=== PATIENT | female | born 1945 | race Hispanic/Latino ===

== ENCOUNTER 2018-07-24 07:48 | Inpatient (IN) | payer OTHER ==
[~2018-07-24] VITALS: Ht 160 cm; Wt 118.8 kg
[2018-07-24] VITALS (22 sets, daily range): BP systolic 110–152; BP diastolic 56–96
[2018-07-24] MEDS ORDERED: IRBESARTAN150 MG PO (08:03)
[2018-07-24] MEDS ORDERED: METOPROLOL SUCC25 MG PO (08:03)
[2018-07-24] MEDS ORDERED: MONTELUKAST SOD10 MG PO (08:03)
[2018-07-24] MEDS ORDERED: METHOCARBAMOL500 MG PO (08:03)
[2018-07-24] MEDS ORDERED: DICYCLOMINE HCL20 MG PO (08:03)
[2018-07-24] MEDS ORDERED: potassium PO (08:03)
[2018-07-24] MEDS ORDERED: PANTOPRAZOLE SO40 MG PO (08:03)
[2018-07-24] MEDS ORDERED: ASPIR 8181 MG PO (08:03)
[2018-07-24] MEDS ORDERED: CRESTOR5 MG PO (08:03)
[2018-07-24] MEDS ORDERED: CYMBALTA30 MG PO (08:03)
[2018-07-24] MEDS ORDERED: HYDROCHLOROTHIA25 MG PO (08:03)
[2018-07-24] MEDS ORDERED: NITROGLYCERIN 0.4 MG SUBL ONE (08:07)
[2018-07-24] MEDS ORDERED: SODIUM CHLORIDE 0.9% 1000ML 1,000 ML ONE ×2 (08:07→11:23)
[2018-07-24] MEDS ORDERED: SODIUM CHLORIDE 0.9% 1000ML 1,000 ML IV STA (08:11)
[2018-07-24] MEDS ORDERED: MORPHINE SULFATE 2 MG/ML SYR 1ML IV STA (08:11)
[2018-07-24] MEDS ORDERED: ONDANSETRON HCL INJ 2MG/ML 2ML 2 MG/ML VIAL IV STA (08:11)
[2018-07-24] MEDS ORDERED: NITROGLYCERIN 0.4 MG SUBL SL PRN (08:15)
[2018-07-24] MEDS ORDERED: SODIUM CHLORIDE 0.9% 1000ML 1,000 ML IV ONE (08:15)
[2018-07-24] MEDS ORDERED: NITROGLYCERIN 0.4 MG SUBL SL ONE (08:15)
[2018-07-24 08:28] LABS: BASOPHILS % 0.2 % (0.0-1.0); EOSINOPHILS # (AUTO) 0.2 (0.0-0.4); EOSINOPHILS % 1.2 % (0.0-6.0); HEMATOCRIT 42.3 % (34.2-44.1); HEMOGLOBIN 14.2 g/dL (12.0-16.0); LYMPHOCYTES # (AUTO) 2.6 (1.0-3.2); MEAN CORPUSCULAR HEMOGLOBIN 29.7 pg (28-32); MEAN CORPUSCULAR HGB CONC 33.6 g/dL (31-35); MEAN CORPUSCULAR VOLUME 88.5 fL (81-99); MONOCYTES # (AUTO) 1.1 (0.2-0.8); MONOCYTES % 8.2 % (4.4-11.3); NEUTROPHILS # (AUTO) 9.8 (2.1-6.9); PLATELET COUNT 219 x10e3/uL (140-360); RED BLOOD COUNT 4.78 x10e6/uL (3.6-5.1); RED CELL DISTRIBUTION WIDTH 12.8 % (11.7-14.4)
[2018-07-24] MEDS ORDERED: MORPHINE SULFATE INJ 4 MG/ML INJ 1ML IV NR (08:30)
[2018-07-24] MEDS ORDERED: NITROGLYCERIN/D5W 200 MCG/ML 250 ML IV STA (08:31)
[2018-07-24] MEDS ORDERED: NITROGLYCERIN/D5W 200 MCG/ML 250 ML ONE (08:35)
[2018-07-24 08:37] LABS: INR 0.94; PROTHROMBIN TIME 13.1 seconds (11.9-14.5)
[2018-07-24 08:38] LABS: PARTIAL THROMBOPLASTIN TIME 28.5 seconds (23.8-35.5)
[2018-07-24] MEDS ORDERED: METHYLPREDNISOLONE SOD SUCC 125 MG/2ML VIAL IV ONE (08:45)
[2018-07-24] MEDS ORDERED: DIPHENHYDRAMINE HCL INJ 50 MG/ML VIAL IV ONE (08:45)
--- NOTE | 2018-07-24 08:51 | Diagnostic Imaging Report ---
EXAM: CHEST SINGLE (PORTABLE) DATE: 07/24/2018 8:11 AM INDICATION: Chest pain COMPARISON: Chest x-ray, 01/27/2006 FINDINGS: Lines and tubes: None Cardiac silhouette is slightly prominent, accentuated by low lung volumes. No focal pulmonary opacity, pleural effusion or pneumothorax. Upper abdomen unremarkable. No acute bony abnormality. There has been interval resection of the distal right clavicle with small anchors placed in the right humeral head. Surgical clips are seen in the cervical soft tissues. IMPRESSION: No evidence for acute disease. Signed by: Dr. Ronak Milian M.D. on 07/24/2018 8:48 AM
[2018-07-24 08:52] LABS: ALANINE AMINOTRANSFERASE 17 IU/L (0-55); ALBUMIN 3.5 g/dL (3.5-5.0); ALBUMIN/GLOBULIN RATIO 0.9 (0.8-2.0); ALKALINE PHOSPHATASE 106 IU/L (40-150); BLOOD UREA NITROGEN 14 mg/dL (7-26); BUN/CREATININE RATIO 18 (6-25); CALCIUM 9.3 mg/dL (8.4-10.2); CARBON DIOXIDE 24 mmol/L (22-29); CHLORIDE 103 mmol/L (98-107); CREATINE KINASE 64 IU/L (29-168); CREATININE, SERUM 0.78 mg/dL (0.57-1.11); EST GLOMERULAR FILTRATION RATE > 60 ML/MIN (60-); GLUCOSE 129 mg/dL (74-118); SODIUM 138 mmol/L (136-145)
[2018-07-24 09:08] LABS: CREATINE KINASE MB < 1.00 ng/mL (0-4.3)
--- NOTE | 2018-07-24 10:14 | Diagnostic Imaging Report ---
EXAMINATION: CT of the chest abdomen and pelvis with and without contrast, dissection protocol TECHNIQUE: Spiral CT images of the chest abdomen and pelvis were performed from the lung apices through the level of the lesser trochanters before and after the IV administration of 100 cc of Isovue-370. Coronal and sagittal reformatted images were available for review. For optimization of anatomic definition, volume rendered 3-D reconstructed images were generated on a stand-alone workstation under direct supervision of the interpreting physician. COMPARISON: Chest radiograph 07/24/2018 CLINICAL HISTORY:Chest pain, concern for aortic dissection DISCUSSION: Vasculature: The thoracic aorta is normal in course, caliber, and contour. No dissection, pseudoaneurysm, intramural hematoma, or mediastinal hematoma. Mild atherosclerotic calcification at the aortic isthmus and along the aortic valve annulus pelvis origins are of normal caliber and configuration. No central pulmonary emboli. The abdominal aorta is nonaneurysmal. There is atherosclerotic calcification at the celiac and SMA origins without significant stenosis. Single bilateral renal arteries are patent. MARIALUISA is patent. Common, external, and internal iliac arteries and visceral internal iliac arterial branches are patent. Lungs: Linear and reticular opacities in the dependent portions of the lower lobes compatible with subsegmental atelectasis. No airspace consolidation, mass lesion, or gross fibrotic change. Trachea, mainstem bronchi, and central lobar bronchi are patent. Airways: <The major airways are clear.> Pleura: <There is no evidence of pleural effusion or pneumothorax.> Heart and mediastinum: Postsurgical changes of probable left hemithyroidectomy. No axillary, hilar, or mediastinal lymphadenopathy. Small pericardial effusion of average attenuation 15 Hounsfield units. Normal heart size. Abdomen: Liver: Hepatic parenchyma is diffusely hypoattenuating compatible with steatosis. No focal hepatic lesion or intrahepatic biliary ductal dilatation. The gallbladder has been removed. Spleen: Heterogeneity of splenic attenuation reflects arterial phase of scan. Pancreas: No focal mass or ductal dilatation. Adrenals: 3.3 cm nodule in the medial limb of the left adrenal gland containing macroscopic fat compatible with myelolipoma. No right adrenal nodule. Kidneys: Subcentimeter hypoattenuating lesions bilaterally, too small to further characterize but likely to represent small cysts. No solid renal mass lesion. No hydronephrosis. No renal, ureteral, or bladder calculi. Pelvic organs: The urinary bladder is incompletely distended but otherwise unremarkable. The uterus is not identified and has presumably been removed. No adnexal mass. Peritoneum: No ascites or pneumoperitoneum. Lymph nodes: No pelvic sidewall, retroperitoneal, or mesenteric lymphadenopathy. GI tract: The large bowel is notable for a few diverticula scattered along the course of the sigmoid colon without wall thickening or inflammatory change. The appendix is not definitively identified. No right lower quadrant inflammatory change. The stomach is collapsed with prominent rugal folds. There is no small bowel dilatation to suggest obstruction. Soft tissues: Postsurgical changes of the anterior abdominal wall. Small fat-containing umbilical hernia Bones: Surgical anchors in the right humeral head. Multilevel degenerative disc changes of the cervical, thoracic, and lumbar spine. Degenerative changes of the hips and degenerative facet arthropathy of the lumbar spine intraosseous hemangiomas of the T11 and T12 vertebral bodies. IMPRESSION: No acute aortic pathology. Specifically, no aortic dissection. Atherosclerotic vascular disease as detailed above. No thoracoabdominal aortic aneurysm. Small pericardial effusion. Hepatic steatosis. Left adrenal myelolipoma. Sigmoid diverticulosis without evidence of diverticulitis. Signed by: Dr. Mariano Spann M.D. on 07/24/2018 10:10 AM
[2018-07-24] MEDS ORDERED: CLOPIDOGREL BISULFATE 75 MG TAB PO ONE (10:15)
--- NOTE | 2018-07-24 10:20 | NUR ---
Patient noted to be 92-93% on 4L nasal cannula. Non rebreather placed at this time at 15L.
[2018-07-24] MEDS ORDERED: ASPIRIN 325 MG TAB EC PO STA (10:43)
[2018-07-24] MEDS ORDERED: SODIUM CHLORIDE 0.9% 1000ML 1,000 ML IV SCH ×2 (10:45→12:32)
--- NOTE | 2018-07-24 11:15 | NUR ---
REC'D PT IN RM 8 IN WALKING ROUNDS WITH PATRICIA SIMMONS. DR. Mynor PEREZ/CASING SEWER TEAM AT BEDSIDE. [place]. DR. Mynor PEREZ ALSO SPEAKING WITH FAMILY
[2018-07-24] MEDS ORDERED: MIDAZOLAM HCL 2 MG/2 ML VIAL ONE (11:22)
[2018-07-24] MEDS ORDERED: HEPARIN SOD/SOD CHLORIDE 2,000 ML ONE (11:22)
[2018-07-24] MEDS ORDERED: FENTANYL CITRATE/PF 100MCG/2 ML INJ ONE (11:22)
[2018-07-24] MEDS ORDERED: LIDOCAINE HCL 2% LOCAL 20 ML VIAL ONE (11:22)
[2018-07-24] MEDS ORDERED: IOPAMIDOL 370 MG/ML 200 ML INFUS..BTL INJ ONE ×3 (11:23→12:07)
[2018-07-24] MEDS ORDERED: DIPHENHYDRAMINE HCL INJ 50 MG/ML VIAL ONE (11:42)
[2018-07-24] MEDS ORDERED: METHYLPREDNISOLONE SOD SUCC 125 MG/2ML VIAL ONE (11:42)
[2018-07-24 11:47] LABS: CHOL/HDL RATIO 2.2 (3.0-3.6)
[2018-07-24] MEDS ORDERED: VERAPAMIL HCL 2.5 MG/ML 2 ML VIAL ONE (11:48)
[2018-07-24] MEDS ORDERED: SODIUM CHLORIDE 0.9% 100 ML 100 ML ONE (12:07)
[2018-07-24 12:10] LABS: THYROID STIMULATING HORMONE 1.759 uIU/mL (0.350-4.940)
[2018-07-24] MEDS ORDERED: ONDANSETRON HCL INJ 2MG/ML 2ML 2 MG/ML VIAL IV PRN ×2 (12:45→15:00)
--- NOTE | 2018-07-24 12:55 | NUR ---
Notified quick technician of Echo order.
--- OUTSIDE RECORDS SUMMARY | 2018-07-24 13:07 | XMS REPORT ---
Author Author SANIYA PRUETT [facility] [employer] Address Unknown Phone Unavailable Care Team Providers Care Peer Specialist Name Role Phone SANIYA PRUETT CP Unavailable Allergies No Known Allergies Problems No Known Problems Medications No Known Medications Results No Known Results Summary Purpose [employer] Submission
--- OUTSIDE RECORDS SUMMARY | 2018-07-24 13:08 | XMS REPORT ---
Author Author [facility] Address Unknown Phone Unavailable Care Team Providers Care Jewelry Store Manager Name Role Phone Zackery ORTEGA Unavailable Unavailable Problems This patient has no known problems. Allergies, Adverse Reactions, Alerts This patient has no known allergies or adverse reactions. Medications This patient has no known medications. Results Test Description Test Time Test Comments Text Results Atomic Results Result Comments CTA ABD/PELVIS 2018-07-24 09:54:00 [place] [address] Patient Name: ACOSTA BROWN MR #: [id number] : 1945 Age/Sex: 73/F Req #: [id number] Adm Physician: Ordered by: YISEL ORTEGA MD Report #: [id number] Location: ER Room/Bed: Procedure: [id number] CT/CTA ABD/PELVIS Exam Date: 07/24/18 Exam Time: 929 REPORT STATUS: Signed EXAMINATION: CT of the chest abdomen and pelvis with and wit hout contrast, dissection protocol TECHNIQUE: Spiral CT images of the chest abdomen and pelvis were performed from the lung apices through the level of the lesser trochanters before and after the IV administration of 100 cc of Isovue-370. Coronal and sagittal reformatted images were available for review. For optimization of anatomic definition, volume rendered 3-D reconstructed images were generated on a stand-alone workstation under direct supervision of the interpreting physician. COMPARISON: Chest radiograph 07/24/2018 CLINICAL HISTORY:Chest pain, concern for aortic dissection DISCUSSION: Vasculature: The thoracic aorta is normal in course, caliber, and contour. No dissection, pseudoaneurysm, intramural hematoma, or mediastinal hematoma. Mild atherosclerotic calcification at the aortic isthmus and along the aortic valve annulus pelvis origins are of normal caliber and configuration. No central pulmonary emboli. The abdominal aorta is nonaneurysmal. There is atherosclerotic calcification at the celiac and SMA origins without significant stenosis. Single bilateral renal arteries are patent. MARIALUISA is patent. Common, external, and internal iliac arteries and visceral internal iliac arterial branches are patent. Lungs: Linear and reticular opacities in the dependent portions of the lower lobes compatible with subsegmental atelectasis. No airspace consolidation, mass lesion, or gross fibrotic change. Trachea, mainstem bronchi, and central lobar bronchi are patent. Airways: <The major airways are clear.> Pleura: <There is no evidence of pleural effusion or pneumothorax.> Heart and mediastinum: Postsurgical changes of probable left hemithyroidectomy. No axillary, hilar, or mediastinal l ymphadenopathy. Small pericardial effusion of average attenuation 15 Hounsfield units. Normal heart size. Abdomen: Liver: Hepatic parenchyma is diffusely hypoattenuating compatible with steatosis. No focal hepatic lesion or intrahepatic biliary ductal dilatation. The gallbladder has been removed. Spleen: Heterogeneity of splenic attenuation reflects arterial phase of scan. Pancreas: No focal mass or ductal dilatation. Adrenals: 3.3 cm nodule in the medial limb of the left adrenal gland containing macroscopic fat compatible with myelolipoma. No right adrenal nodule. Kidneys: Subcentimeter hypoattenuating lesions bilaterally, too small to further characterize but likely to represent small cysts. No solid renal mass lesion. No hydronephrosis. No renal, ureteral, or bladder calculi. Pelvic organs: The urinary bladder is incompletely distended but otherwise unremarkable. The uterus is not identified and has presumably been removed. No adnexal mass. Peritoneum: No ascites or pneumoperitoneum. Lymph nodes: No pelvic sidewall, retroperitoneal, or mesenteric lymphadenopathy. GI tract: The large bowel is notable for a few diverticula scattered along the course of the sigmoid colon without wall thickening or inflammatory change. The appendix is not definitively identified. No right lower quadrant inflammatory change. The stomach is collapsed with prominent rugal folds. There is no small bowel dilatation to suggest obstruction. Soft tissues: Postsurgical changes of the anterior abdominal wall. Small fat-containing umbilical hernia Bones: Surgical anchors in the right humeral head. Multilevel degenerative disc changes of the cervical, thoracic, and lumbar spine. Degenerative changes of the hips and degenerative facet arthropathy of the lumbar spine intraosseous hemangiomas of the T11 and T12 vertebral bodies. IMPRESSION: No acute aortic pathology. Specifically, no aortic dissection. Atherosclerotic vascular disease as detailed above. No thoracoabdominal aortic aneurysm. Small pericardial effusion. Hepatic steatosis. Left adrenal myelolipoma. Sigmoid diverticulosis without evidence of diverticulitis. Signed by: Dr. Stefania Menjivar M.D. on 07/24/2018 10:10 AM Dictated By: STEFANIA MENJIVAR MD 1010 Transcribed By: MEKHI on 07/24/18 1010 COPY TO: YISEL ORTEGA MD CTA CHEST 2018-07-24 09:54:00 [place] [address] Patient Name: ACOSTA BROWN MR #: [id number] : 1945 Age/Sex: 73/F Req #: [id number] Adm Physician: Ordered by: YISEL ORTEGA MD Report #: [id number] Location: ER Room/Bed: Procedure: [id number] CT/CTA CHEST Exam Date: 07/24/18 Exam Time: 929 REPORT STATUS: Signed EXAMINATION: CT of the chest abdomen and pelvis with and without contrast, dissection protocol TECHNIQUE: Spiral CT images of the chest abdomen and pelvis were performed from the lung apices through the level of the lesser trochanters before and after the IV administration of 100 cc of Isovue-370. Coronal and sagittal reformatted images were available for review. For optimization of anatomic definition, volume rendered 3-D reconstructed images were generated on a stand-alone workstation under direct supervision of the interpreting physician. COMPARISON: Chest radiograph 07/24/2018 CLINICAL HISTORY:Chest pain, concern for aortic dissection DISCUSSION: Vasculature: The thoracic aorta is normal in course, caliber, and contour. No dissection, pseudoaneurysm, intramural hematoma, or mediastinal hematoma. Mild atherosclerotic calcification at the aortic isthmus and along the aortic valve annulus pelvis origins are of normal caliber and configuration. No central pulmonary emboli. The abdominal aorta is nonaneurysmal. There is atherosclerotic calcification at the celiac and SMA origins without significant stenosis. Single bilateral renal arteries are patent. MARIALUISA is patent. Common, external, and internal iliac arteries and visceral internal iliac arterial branches are patent. Lungs: Linear and reticular opacities in the dependent portions of the lower lobes compatible with subsegmental ate lectasis. No airspace consolidation, mass lesion, or gross fibrotic change. Trachea, mainstem bronchi, and central lobar bronchi are patent. Airways: <The major airways are clear.> Pleura: <There is no evidence of pleural effusion or pneumothorax.> Heart and mediastinum: Postsurgical changes of probable left hemithyroidectomy. No axillary, hilar, or mediastinal lympha denopathy. Small pericardial effusion of average attenuation 15 Hounsfield units. Normal heart size. Abdomen: Liver: Hepatic parenchyma is diffusely hypoattenuating compatible with steatosis. No focal hepatic lesion or intrahepatic biliary ductal dilatation. The gallbladder has been removed. Spleen: Heterogeneity of splenic attenuation reflects arterial phase of scan. Pancreas: No focal mass or ductal dilatation. Adrenals: 3.3 cm nodule in the medial limb of the left adrenal gland containing macroscopic fat compatible with myelolipoma. No right adrenal nodule. Kidneys: Subcentimeter hypoattenuating lesions bilaterally, too small to further characterize but likely to represent small cysts. No solid renal mass lesion. No hydronephrosis. No renal, ureteral, or bladder calculi. Pelvic organs: The urinary bladder is incompletely distended but otherwise unremarkable. The uterus is not identified and has presumably been removed. No adnexal mass. Peritoneum: No ascites or pneumoperitoneum. Lymph nodes: No pelvic sidewall, retroperitoneal, or mesenteric lymphadenopathy. GI tract: The large bowel is notable for a few diverticula scattered along the course of the sigmoid colon without wall thickening or inflammatory change. The appendix is not definitively identified. No right lower quadrant inflammatory change. The stomach is collapsed with prominent rugal folds. There is no small bowel dilatation to suggest obstruction. Soft tissues: Postsurgical changes of the anterior abdominal wall. Small fat-containing umbilical hernia Bones: Surgical anchors in the right humeral head. Multilevel degenerative disc changes of the cervical, thoracic, and lumbar spine. Degenerative changes of the hips and degenerative facet arthropathy of the lumbar spine intraosseous hemangiomas of the T11 and T12 vertebral bodies. IMPRESSION: No acute aortic pathology. Specifically, no aortic dissection. Atherosclerotic vascular disease as detailed above. No thoracoabdominal aortic aneurysm. Small pericardial effusion. Hepatic steatosis. Left adrenal myelolipoma. Sigmoid diverticulosis without evidence of diverticulitis. Signed by: Dr. Stefania Menjivar M.D. on 07/24/2018 10:10 AM Dictated By: STEFNAIA MENJIVAR MD 1010 Transcribed By: MEKHI on 07/24/18 1010 COPY TO: YISEL ORTEGA MD CHEST SINGLE (PORTABLE) 2018-07-24 08:44:00 [place] [address] Patient Name: ACOSTA BROWN MR #: [id number] : 1945 Age/Sex: 73/F Req #: [id number] Adm Physician: Ordered by: YISEL ORTEGA MD Report #: [id number] Location: ER Room/Bed: Procedure: [id number] DX/CHEST SINGLE (PORTABLE) Exam Date: 07/24/18 Exam Time: 0830 REPORT STATUS: Signed EXAM: CHEST SINGLE (PORTABLE) DATE: 07/24/2018 8:11 AM INDICATION: Chest pain COMPARISON: Chest x-ray, 01/27/2006 FINDINGS: Lines and tubes: None Cardiac silhouette is slightly prominent, accentuated by low lung volumes. No focal pulmonary opacity, pleural effusion or pneumothorax. Upper abdomen unremarkable. No acute bony abnormality. There has been interval resection of the distal right clavicle with small anchors placed in the right humeral head. Surgical clips are seen in the cervical soft tissues. IMPRESSION: No evidence for acute disease. Signed by: Dr. Yisle Guerrero M.D. on 07/24/2018 8:48 AM Dictated By: YISEL GUERRERO MD 7 Transcribed By: MEKHI on 07/24/18847 COPY TO: YISEL ORTEGA MD
--- OUTSIDE RECORDS SUMMARY | 2018-07-24 13:08 | XMS REPORT | Summary of Care ---
Author Author Rick Kirk, Qing Organization Unknown Address [facility] Phone Unavailable Care Team Providers Care Cheese Wrapper Name Role Phone GIO Richardson, ALEXIS Unavailable Unavailable MINDA Wilson, BURTON Unavailable Unavailable BELIA Wilson, CHAN Unavailable Unavailable Rick Kirk, Qing Unavailable Unavailable BRENNEN Esqueda.PMikey, SOLEDAD Unavailable Unavailable TEN Wilson, MARTIN Unavailable Unavailable REINALDO Wilson, ALYCIA Unavailable Unavailable MADELINE BROOKS MO, ELLEN GUERRA Unavailable Unavailable MADELINE Wilson, ELLEN Unavailable Unavailable GIO MISHRA [place], ALEXIS Unavailable Unavailable REINALDO BROOKS, ALYCIA Unavailable Unavailable Ten BROOKS, Martin Unavailable Unavailable Unavailable Unavailable Functional Status Name Dates Details Functional status health issues are not documented Status: Name Dates Details Cognitive status health issues are not documented Status: Problems Name Dates Details Acute Tear Of Left Rotator Cuff Tendon (726.19) Status: Active Edema (782.3, R60.9) Status: Active Breast pain (611.71, N64.4) Status: Active Trigger finger, acquired (727.03, M65.30) Status: Active Anxiety (300.00, F41.9) Status: Active Allergic rhinitis (477.9, J30.9) Status: Active Brain tumor (239.6, D49.6) Status: Active Need for pneumococcal vaccine (V03.82, Z23) Status: Active Pain of left breast (611.71, N64.4) Status: Active Knee pain (719.46, M25.569) Status: Active Pain, hand joint, left (719.44, M79.642) Status: Active Pain, hand joint, right (719.44, M79.641) Status: Active Myalgia and myositis (729.1) Status: Active Need for vaccination with 13-polyvalent pneumococcal conjugate vaccine (V03.82, Z23) Status: Active Chronic midline thoracic back pain (724.1, M54.6) Status: Active Pleuritic pain (786.52, R07.81) Status: Active History of pulmonary embolus (PE) (V12.55, Z86.711) Status: Active Synovitis of left hand (727.05, M65.9) Status: Active Synovitis of right hand (727.05, M65.9) Status: Active Arthralgia of left foot (719.47, M25.572) Status: Active Arthralgia of right foot (719.47, M25.571) Status: Active 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, 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) Status: Active Floaters (379.24, H43.399) Status: Active Back pain (724.5, M54.9) Status: Active Back muscle spasm (724.8, M62.830) Status: Active On corticosteroid therapy (V58.65, Z79.52) Status: Active Postmenopausal estrogen deficiency (V49.81, Z78.0) Status: Active Dry eyes (375.15, H04.123) Status: Active Elevated serum creatinine (790.99, R79.89) Status: Active Chronic pain of both shoulders (719.41, M25.511) Status: Active Hearing loss, bilateral (389.9, H91.93) Status: Active Seasonal allergic rhinitis due to pollen (477.0, J30.1) Status: Active Sensorineural hearing loss (SNHL) of both ears (389.18, H90.3) Status: Active Hyperkalemia (276.7, E87.5) Status: Active Encounter for mini-mental status examination Status: Active Refused influenza vaccine (V64.06, Z28.21) Status: Active Benign essential HTN (401.1, I10) Status: Active Depression screening (V79.0, Z13.89) Status: Active At low risk for fall (V49.89, Z91.81) Status: Active Advance directive discussed with patient (V65.49, Z71.89) Status: Active Herpes simplex (054.9, B00.9) Status: Active Cataract (366.9, H26.9) Status: Active Dyspnea on exertion (786.09, R06.09) Status: Active Chest pain (786.50, R07.9) Status: Active Coronary artery calcification (414.00, I25.10) Status: Active On methotrexate therapy (V58.69, Z79.899) Status: Active Breast lump (611.72, N63.0) Status: Active Pain in joint (719.40, M25.50) Status: Active Encounter for screening for malignant neoplasm of colon (V76.51, Z12.11) Status: Active On statin therapy (V58.69, Z79.899) Status: Active Essential (primary) hypertension (401.9, I10) Status: Active Hyperlipidemia (272.4, E78.5) Status: Active Meningioma (225.2, D32.9) Status: Active Cerebrovascular disease (437.9, I67.9) Status: Active Gastroparesis (536.3, K31.84) Status: Active Arthralgia of both knees (719.46, M25.561) Status: Active Chronic right shoulder pain (719.41, M25.511) Status: Active Polyarthralgia (719.49, M25.50) Status: Active 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, E04.2) Status: Active Acid reflux (530.81, K21.9) Status: Active Irritable bowel syndrome (564.1, K58.9) Status: Active Rheumatoid arthritis with negative rheumatoid factor (714.0, M06.00) Status: Active On sulfasalazine therapy (V58.69, Z79.899) Status: Active Encounter for monitoring leflunomide therapy (V58.83, Z51.81) Status: Active Fibromyalgia (729.1, M79.7) Status: Active Pruritus of skin (698.9, L29.9) Status: Active Skin lesion of face (709.9, L98.9) Status: Active Need for Tdap vaccination (V06.1, Z23) Status: Active Medications Name Dates Details Probiotic Oral Capsule qd CHAN CELAYA M.D. * Start : 03-May-2013 Active Digestive Enzyme CAPS TAKE 1 CAPSULE DAILY * Refills: 0 Active Montelukast Sodium 10 MG Oral Tablet TAKE 1 TABLET IN THE EVENING. * Quantity: 90 Refills: 1 MINDA Wilson BURTON * Start : 08-Jun-2015 Active Pantoprazole Sodium 40 MG Oral Tablet Delayed Release TAKE 1 TABLET TWICE DAILY 30 MINUTES BEFORE BREAKFAST AND DINNER. * Quantity: 180 Refills: 3 MARTIN CAAL M.D. * Start : 10-Dec-2014 Active ValACYclovir HCl - 500 MG Oral Tablet 1 po bid x 5 days prn outbreak * Quantity: 30 Refills: 2 GIO P.AALEXIS Jensen * Start : 07-Aug-2015 Active Dicyclomine HCl - 20 MG Oral Tablet TAKE 1 TABLET TWICE DAILY. * Quantity: 60 Refills: 11 MARTIN CAAL M.D. * Start : 08-Feb-2016 Active Valsartan-Hydrochlorothiazide 320-25 MG Oral Tablet TAKE ONE TABLET BY MOUTH ONCE DAILY * Quantity: 90 Refills: 1 ALYCIA NAJERA M.D. * Start : 24-May-2016 Active Calcium-Magnesium TABS TAKE DIRECTED.(1000MG/500MG) * Refills: 0 Active Rosuvastatin Calcium 5 MG Oral Tablet TAKE 1 TABLET BEDTIME * Quantity: 90 Refills: 0 ALYCIA NAJERA M.D. * Start : 06-Sep-2016 Active Aspirin 81 MG Oral Tablet Delayed Release TAKE 1 TABLET DAILY * Refills: 0 ALYCIA NAJERA M.D. * Start : 06-Sep-2016 Active Albuterol Sulfate (2.5 MG/3ML) 0.083% Inhalation Nebulization Solution USE 1 UNIT DOSE EVERY 4-6 HOURS NEEDED FOR WHEEZING . * Quantity: 1 Refills: 1 SOLEDAD HUTTON N.P. * Start : 26-Sep-2016 Active 25 x 3 ML Plas Cont Fiber CAPS * Refills: 0 Active Collagen CAPS * Refills: 0 Active Cymbalta 30 MG Oral Capsule Delayed Release Particles TAKE 1 CAPSULE BEDTIME * Refills: 0 Active MethylPREDNISolone Acetate 80 MG/ML Injection Suspension USE DIRECTED. * Refills: 0 BRENNEN Esqueda.SOLEDAD Hodges * Start : 24-Apr-2017 Admin Requested Probiotic CAPS * Refills: 0 Active Metoprolol Succinate ER 25 MG Oral Tablet Extended Release 24 Hour TAKE 1 TABLET EVERY EVENING. * Quantity: 30 Refills: 3 ALYCIA NAJERA M.D. * Start : 27-Apr-2017 Active Breo Ellipta 200-25 MCG/INH Inhalation Aerosol Powder Breath Activated INHALE 1 PUFFS DAILY * Quantity: 1 Refills: 0 MINDA M.D., BURTON * Start : 03-May-2017 Active 28 Inhaler Pack Levocetirizine Dihydrochloride 5 MG Oral Tablet TAKE 1 TABLET DAILY. * Quantity: 30 Refills: 3 MINDA M.D., BURTON * Start : 30-Jun-2017 Active Allergies and Adverse Reactions Name Dates Details Coumadin TABS (Allergy) Status: Active Iodine SOLN (Allergy) Status: Active Past Medical History Name Dates Details History of arthritis (V13.4, Z87.39) Status: Resolved History of Benign Brain Tumor (V12.41) Status: Resolved History of deafness (V12.49, Z86.69) Status: Resolved History of Intussusception (560.0, K56.1) Status: Resolved History of Pulmonary Embolism (V12.55) Status: Resolved Procedures Procedure Dates Details History of Thyroid Surgery Thyroid Lobectomy Completed History of Cholecystectomy Completed History of Appendectomy Completed History of Tonsillectomy Completed History of Hysterectomy Completed History of Exploratory Laparotomy Completed History of Hemorrhoidectomy Completed History of Oophorectomy Completed History of Rotator Cuff Repair Completed History of Knee Surgery Completed Immunization Name Dates Details Pneumovax 23 25 MCG/0.5ML Injection Injectable Lot #: [id number] on: 11-Jun-2013 Zoster (Zostavax) Lot #: [id number] on: 11-Jun-2013 Prevnar 13 Intramuscular Suspension Lot #: [id number] on: 24-Dec-2015 PPD on: 06-Jan-2016 PPD, tuberculin skin test; purified protein derivative solution, intradermal on: 19-Apr-2017 Tdap Lot #: [id number] on: 30-Jun-2017 Family History Name Dates Details Family history of Hypertension (V17.49) Comments: Family History Status: Active Name Dates Details Family history of myocardial infarction (V17.3, Z82.49) Status: Active Social History Name Dates Details - Status: Name Dates Details Never smoker Vital Signs Date Test Result Details [id number] BP Systolic 133 mm[Hg] Status: Comments: Location: LUE; Position: Sitting BP Diastolic 76 mm[Hg] Status: Comments: Location: LUE; Position: Sitting Height 63 in Status: Weight 243.0625 lb Status: Body Mass Index Calculated 43.06 kg/m2 Status: Body Surface Area Calculated 2.1 m2 Status: Temperature 98.1 f Status: Comments: Method: Temporal Heart Rate 75 /min Status: Respiration Rate 16 /min Status: Physical Findings 0 Status: Comments: Pain Scale [id number] BP Systolic 141 mm[Hg] Status: Comments: Location: LUE; Position: Sitting BP Diastolic 77 mm[Hg] Status: Comments: Location: LUE; Position: Sitting Height 63 in Status: Weight 241.375 lb Status: Body Mass Index Calculated 42.76 kg/m2 Status: Body Surface Area Calculated 2.09 m2 Status: Heart Rate 77 /min Status: Respiration Rate 16 /min Status: Results Date Description Value Details Results not documented Plan of Care Name Dates Details Planned Observations Planned Goals not documented Planned Encounters Appointment; NATHANAEL DUFF M.D. On: 01-Sep-2017 9:45 Appointment; ALYCIA NAJERA M.D. On: 07-Sep-2017 9:40 Appointment; WATSON LR M.D. On: 29-Nov-2017 10:00 Appointment; CHAN CELAYA M.D. On: 08-Mar-2018 9:00 Instructions Name Dates Details Instructions not documented Encounters Appointment; BURTON PERLA M.D. Encounter Diagnosis: Problem not documented On: 07-Aug-2015 10:30 Appointment; MARTIN CAAL M.D. Encounter Diagnosis: Problem not documented On: 07-Aug-2015 13:30 Appointment; CHAN CELAYA M.D. Encounter Diagnosis: Problem not documented On: 10-Sep-2015 8:00 Appointment; MARTIN CAAL M.D. Encounter Diagnosis: Problem not documented On: 11-Sep-2015 13:45 Appointment; MARTIN CAAL M.D. Encounter Diagnosis: Problem not documented On: 14-Dec-2015 9:15 Appointment; ALEXIS POWERS P.A. Encounter Diagnosis: Problem not documented On: 24-Dec-2015 11:00 Appointment; WATSON LR M.D. Encounter Diagnosis: Problem not documented On: 05-Jan-2016 14:00 Appointment; MARTIN CAAL M.D. Encounter Diagnosis: Problem not documented On: 18-Jan-2016 9:15 Appointment; ALEXIS POWERS P.A. Encounter Diagnosis: Problem not documented On: 21-Jan-2016 10:00 Appointment; WATSON LR M.D. Encounter Diagnosis: Problem not documented On: 08-Feb-2016 9:30 Appointment; MARTIN CAAL M.D. Encounter Diagnosis: Problem not documented On: 08-Feb-2016 11:15 Appointment; WILLIAM MANTILLA Encounter Diagnosis: Problem not documented On: 02-Mar-2016 13:20 Appointment; CHAN CELAYA M.D. Encounter Diagnosis: Problem not documented On: 11-Mar-2016 9:00 Appointment; MARTIN CAAL M.D. Encounter Diagnosis: Problem not documented On: 14-Mar-2016 11:15 Appointment; WATSON LR M.D. Encounter Diagnosis: Problem not documented On: 11-Apr-2016 10:30 Appointment; WATSON LR M.D. Encounter Diagnosis: Problem not documented On: 12-May-2016 10:00 Appointment; JAYSHREE FLOREZ M.D. Encounter Diagnosis: Problem not documented On: 16-May-2016 10:00 Appointment; HOMER BARAJAS M.D. Encounter Diagnosis: Problem not documented On: 19-May-2016 18:00 Appointment; ALEXIS POWERS P.A. Encounter Diagnosis: Problem not documented On: 24-May-2016 9:45 Appointment; QING APARICIO Encounter Diagnosis: Problem not documented On: 07-Jun-2016 8:30 Appointment; JAYSHREE FLOREZ M.D. Encounter Diagnosis: Problem not documented On: 07-Jun-2016 9:15 Appointment; QING APARICIO Encounter Diagnosis: Problem not documented On: 10-Jun-2016 9:30 Appointment; WATSON LR M.D. Encounter Diagnosis: Problem not documented On: 23-Jun-2016 10:00 Appointment; ALEXIS POWERS P.A. Encounter Diagnosis: Problem not documented On: 25-Aug-2016 15:00 Appointment; ALYCIA NAJERA M.D. Encounter Diagnosis: Problem not documented On: 06-Sep-2016 14:00 Appointment; JOSE RAFAELNADIA OCONNELL Encounter Diagnosis: Problem not documented On: 09-Sep-2016 16:00 Appointment; WATSON LR M.D. Encounter Diagnosis: Problem not documented On: 20-Sep-2016 10:00 Appointment; ALEXIS POWERS P.A. Encounter Diagnosis: Problem not documented On: 26-Sep-2016 11:00 Appointment; [facility] Encounter Diagnosis: Problem not documented On: 20-Oct-2016 8:30 Appointment; ALYCIA NAJERA M.D. Encounter Diagnosis: Problem not documented On: 20-Oct-2016 14:15 Appointment; GHADA JOHNSON M.D. Encounter Diagnosis: Problem not documented On: 01-Dec-2016 9:30 Appointment; MARTIN CAAL M.D. Encounter Diagnosis: Problem not documented On: 14-Dec-2016 10:15 Appointment; WATSON LR M.D. Encounter Diagnosis: Problem not documented On: 25-Jan-2017 10:00 Appointment; MARTIN CAAL M.D. Encounter Diagnosis: Problem not documented On: 13-Feb-2017 10:15 Appointment; WATSON LR M.D. Encounter Diagnosis: Problem not documented On: 08-Mar-2017 9:30 Appointment; CHAN CELAYA M.D. Encounter Diagnosis: Problem not documented On: 10-Mar-2017 9:00 Appointment; MARTIN CAAL M.D. Encounter Diagnosis: Problem not documented On: 22-Mar-2017 11:00 Appointment; WATSON LR M.D. Encounter Diagnosis: Problem not documented On: 19-Apr-2017 9:30 Appointment; ALYCIA NAJERA M.D. Encounter Diagnosis: Problem not documented On: 20-Apr-2017 9:30 Appointment; ALYCIA NAJERA M.D. Encounter Diagnosis: Problem not documented On: 20-Apr-2017 9:40 Appointment; SOLEDAD HUTTON NP Encounter Diagnosis: Problem not documented On: 24-Apr-2017 15:00 Appointment; ALYCIA NAJERA M.D. Encounter Diagnosis: Problem not documented On: 27-Apr-2017 13:40 Appointment; SOLEDAD HUTTON NP Encounter Diagnosis: Problem not documented On: 27-Apr-2017 14:30 Appointment; BURTON PERLA M.D. Encounter Diagnosis: Problem not documented On: 03-May-2017 12:45 Appointment; WATSON LR M.D. Encounter Diagnosis: Problem not documented On: 31-May-2017 10:00 Appointment; ALYCIA NAJERA M.D. Encounter Diagnosis: Problem not documented On: 08-Jun-2017 11:00 Appointment; BURTON PERLA M.D. Encounter Diagnosis: Problem not documented On: 30-Jun-2017 14:00
--- NOTE | 2018-07-24 13:32 | NUR ---
Removed 2ml of air from right wrist TR band. Right wrist site appears to be without signs or symptoms of active bleeding at this time. Patient tolerated well.
--- NOTE | 2018-07-24 13:48 | NUR ---
Removed 2ml of air from right wrist TR band. Palpable right radial pulse. Right wrist site appears to be without signs or symptoms of active bleeding at this time. Patient tolerated well.
--- NOTE | 2018-07-24 14:22 | NUR ---
Removed 2ml of air from right wrist TR band. Right wrist site appears to be without signs or symptoms of active bleeding at this time. Palpable right radial pulse. Patient tolerated well.
--- NOTE | 2018-07-24 14:29 | NUR ---
Removed 15 L nonrebreather and placed patient on 4 liters nasal cannula. will monitor. Patient oxygen saturation 97%
--- NOTE | 2018-07-24 14:40 | NUR ---
Removed 2ml of air from right wrist TR band. RIght wrist site appears to be without signs or symptoms of active bleeding at this time. Patient tolerated well.
--- NOTE | 2018-07-24 14:50 | NUR ---
Called Dr. Mynor Cardenas and notified patient reports chest pain with movement and with inspiration. Dr. Mynor Cardenas ordered 1mg Dilaudid IV [id number] prn pain and Consult Dr. Diggs for hypoxia.
[2018-07-24] MEDS ORDERED: HYDROMORPHONE 2MG/ML 2 MG/ML ML IV PRN (15:00)
--- NOTE | 2018-07-24 15:05 | NUR ---
1505PM DILAUDID 1MG IVP OVER 2MINUTES FOR PAIN 12/15 RELIEVED TO 10 W/O INTENSE CHEST AT THIS TIME BP 140 SYSTOLIC 13 RESP ON N/C 98%SAT STABLE DS/RN.
[2018-07-24] MEDS: HYDROMORPHONE 2MG/ML 2 MG/ML ML IV PRN (15:47)
--- NOTE | 2018-07-24 15:47 | NUR ---
Received pt. from Miracle Clarke RN. Pt. c/o pain in chest status post LHC. Physician ordered Dilaudid per Miracle Clarke RN. 1 mg of Dilaudid IV given per Melisa Ching RN. Pt. tolerated well and noted diminished pain to 4/10. Removed 2 ml of air from TR Band; patient status unchanged.
--- NOTE | 2018-07-24 15:50 | NUR ---
Echo done at bedside.
--- NOTE | 2018-07-24 16:25 | NUR ---
Removed 2ml of air from right wrist TR band. RIght wrist site appears to be without signs or symptoms of active bleeding at this time. Palpabe right radial pulse. Patient tolerated well.
--- NOTE | 2018-07-24 16:31 | NUR ---
Spoke with Alejandra to harman for Consult for Dr. Diggs.
--- NOTE | 2018-07-24 16:40 | NUR ---
Removed last 2ml of air from right wrist TR band. Dressing applied per unit protocol. Dressing to right wrist is clean,dry, and intact. Palpable right radial pulse. Pulse ox to second digit of right hand.
--- NOTE | 2018-07-24 17:00 | NUR ---
Called Dr. Noe Chaparro to request diet order. Dr. Noe Chaparro ordered regular diet.
--- NOTE | 2018-07-24 17:05 | NUR ---
Patient tolerated PO food and fluid. Patient denies nausea/vomiting at this time.
--- NOTE | 2018-07-24 19:00 | NUR ---
report provided to ortega GOMEZ. Alert oriented and appropriate, PERRLA, respirations even and unlabored to 2L/nc. Pulses x4 equal and strong. Pedal pulses PT/DP palpable . Cap fill brisk < 3 sec. Right radial with dressing and +neurovascular funntion. + affect , family at bedside Skin warm and dry integrity appears intact. IV 20g to left and right AC area presents healthy w/o s/s of infiltration or complaint. Abdomen soft and supple. pt offered toileting, denies need to urinate or defecate. Personal affects with patient. Family at bedside. Pt and family verbalizes understanding of POC. [facility] transferred [facility] to [address] [place] [address] on monitor and oxygen by laborer powerhouse escort. Currently w/o complaint of pain or need. No obvious gross issues or deficits -cgf
--- NOTE | 2018-07-24 19:08 | Consultation ---
DATE OF CONSULTATION: 07/24/2018 REASON FOR CONSULTATION: Chest pain. 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 The patient presents to [facility] ER with complaints of chest pain that started initially yesterday afternoon; however, had episode again this morning and therefore came to the ER for further evaluation. Initial EKG noted with inverted T-waves and the patient with continuous chest pain. Cardiology was consulted to evaluate the patient. The patient was seen in ER room 8 with family at bedside. The patient reports initial chest pain episode yesterday evening about 5 p.m., describes it as a tightness, cramping, retrosternal, radiating to the left jaw. Apparently, the patient took some vinegar and water, believed it was her reflux; however, symptoms progressed for about an hour and ceased. Apparently the patient reports went to bed and this morning around 5 a.m., had repeated episode of chest tightness, cramping, retrosternal, radiating to left jaw with some shortness of breath and nausea that was continuous. Therefore, the patient came to the ER for further evaluation. The patient was loaded with Plavix. The patient also reports for the past several weeks has reported more shortness of breath, feeling tired with minimal activities. Currently, the patient is reporting chest pain, she is on nonrebreather. PATIENT SAID SHE HAD ABNORMAL STRESS TEST BY DR. GODFREY AT [place] AND SHE IS UNDER OBSERVATION WITH MEDICAL [facility] PAST MEDICAL HISTORY: Hypertension, hyperlipidemia, PE in 2009 post right knee surgery, gastroparesis, asthma, left parietal lobe tumour being followed by [place] [facility], reflux, depression, and asthma. PAST SURGICAL HISTORY: Right knee surgery in 2009, thyroidectomy, cholecystectomy, hysterectomy, tonsillectomy, bowel surgery secondary to obstruction, appendectomy, hemorrhoidectomy, and right shoulder surgery. FAMILY HISTORY: Mother at the age 83 from apparently [place]. Father at the [place] 52 [place]. SOCIAL HISTORY: She is . 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 Denies any tobacco use. Occasional alcohol use. ALLERGIES: TO IODINE. HOME MEDICATIONS: Include aspirin 81 mg once a day, metoprolol 25 mg once daily, hydrochlorothiazide 25 mg once daily, irbesartan 300 mg once daily, dicyclomine 20 mg twice a day, Protonix 40 mg once a day, rosuvastatin 5 mg once a day, Cymbalta 30 mg once a day, Singulair 10 mg once a day, and methocarbamol 500 mg once daily. REVIEW OF SYSTEMS: GENERAL: Denies any fevers, chills, night sweats, any weight changes. Positive for fatigue and weakness for several weeks or so. SKIN: No rashes or sores reported. HEENT: Positive for headaches. Denies any vision changes, any blurred vision, double vision, any earaches, any epistaxis, any sore throat, or swollen neck. CARDIAC: Positive for chest pain. Positive for hypertension. Denies any palpitations. Positive for dyspnea on exertion. Denies any orthopnea or PND. RESPIRATORY: Positive for shortness of breath. Intermittent wheezing. Denies coughing or hemoptysis. GI: Reports good appetite. Positive for nausea and vomiting. Denies any melena, hematochezia, or abdominal pain. URINARY: Denies any frequency, urgency, any dysuria, or hematuria. VASCULAR: Positive for intermittent lower extremity edema, reports left worse than right. MUSCULOSKELETAL: Positive for generalized joint pains. NEUROLOGIC: Denies any tingling, tremors, weakness, paralysis, fainting, blackout, or seizures. HEMATOLOGIC: Denies any bruising, bleeding, or any anemia. ENDOCRINE: Denies any heat or cold intolerance, any polyuria, polydipsia, or polyphagia. PHYSICAL EXAMINATION: VITAL SIGNS: Height 63 inches, weight 250 pounds, and BMI 44. Temperature 98.4, pulse 74, blood pressure 142/65, and pulse ox 98% on nonrebreather. GENERAL: Appears reliable informant. Appears stated age and some mild shortness of breath. SKIN: No rashes or bruises noted. HEENT: Normocephalic. Pupils are equal and reactive. Extraocular movements are intact. Trachea midline. NECK: No JVD noted. No carotid bruit noted; however, the patient is obese. HEART: Regular rate and rhythm. No murmurs or clicks noted. PMI about fourth and fifth intercostal space. LUNGS: Bilateral breath sounds with some crackles noted at the bases. No wheezing noted. ABDOMEN: Soft, nontender, and nondistended. No organomegaly noted. MUSCULOSKELETAL: Good muscle strength throughout. There is some slight swelling in the left lower extremity more than right. VASCULAR: +2 bilateral radial pulses, +2 DP/PT pulses bilaterally. NEUROLOGIC: Cranial nerves II through XII seem intact. LABORATORY DATA: White count 13, hemoglobin 14, hematocrit 42, and platelets 219. Sodium 138, potassium 4.9, bicarb 24, BUN 14, creatinine 0.7. Troponins less than 0.05. BNP 31. PTT 28, D-dimer 380. IMAGING: Chest x-ray no acute abnormalities. CT of the chest, abdomen, and pelvis; no thoracoabdominal aneurysm. Left adrenal myelolipoma, sigmoid diverticulosis, and small pericardial effusion reported. Initial EKG showing inverted T-waves in the inferior leads, following EKG showing inverted T-waves in the lateral leads. ASSESSMENT: 1. Chest pain, unstable. 2. Hypertension. 3. Hyperlipidemia. 4. Gastroesophageal reflux disease. 5. Obesity. PLAN: 1. The patient presents with chest pain. Now reports chest pain continuous at rest, unstable in nature. The patient loaded with Plavix. Left heart catheterization discussed with the patient's daughter and at beside. Risks and benefits included, questions answered. The patient wishes to proceed with left heart catheterization. Will give steroids for Iodine allergy 2. As mentioned, the patient was already loaded with Plavix. 3. We will go ahead and get a consent, which has been discussed with nursing staff. 4. We will continue aspirin, statin, and beta-coleman therapy. 5. We will get an echo to evaluate heart function and structure. 6. Further recommendations as clinical course dictates. Thank you very much for this consult. Dictated by Mariano Woodruff NP Patient seen, examined and evaluated Foster Cardenas MD DC/LEIGH ANN /[id number] TATIANA
--- NOTE | 2018-07-24 19:45 | NUR ---
patient brought into the unit, reporting rn, states all meds ordered until 1930 has being administered, patient welcomed and made comfortable in bed, patient had 400mls of urine on arrival.
--- NOTE | 2018-07-24 19:53 | Operative Report ---
DATE OF PROCEDURE: 07/24/2018 SURGEON: Daniel Cardenas MD PROCEDURES PERFORMED: 1. Left heart cardiac catheterization with coronary angiography. 2. Left ventriculography. GANG KNIFE FISH CHOPPER: Daniel Cardenas MD. 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 Andrews about one year ago, who has been medically managed. The patient also has remote history of pulmonary embolism 6 to 7 years ago. She presents to the ER with hypoxic respiratory failure, O2 sat 90% and was placed on a nonrebreather. She came in with initial T-wave inversions in the inferior leads and in the ER she clinically deteriorated with pseudonormalization of the inferior leads and was placed on a nitroglycerin drip. Despite this the patient was having relentless substernal chest pressure radiating to the neck highly concerning for high-risk ACS situation. The patient was taken emergently to the cardiac catheterization on the urge of the ER physician, who noted such a rapid decline. DESCRIPTION OF PROCEDURE: The patient was brought to the cardiac catheterization laboratory in emergent fashion where the right wrist was prepped and draped in usual sterile fashion. 1% lidocaine solution was used to numb the right wrist region and access to the right radial artery was obtained and a long 5-American Terumo Glidesheath was placed. Intra-arterial verapamil 2.5 mg was given and IV heparin 5000 units was given for systemic anticoagulation. Initially, we went up with a 5-American Joey 4.0 diagnostic catheter and selected the right coronary artery. This revealed a large right dominant system, however, no significant disease. We switched that for a JL 3.5 5-American diagnostic catheter and performed left coronary angiography. Afterwards, we took an angled pigtail catheter, placed in the ventricle and utilizing power injection, ventriculography was performed. Ventricular filling pressures were measured as well as the pressure gradient across the aortic valve. At the conclusion of the case, the catheter was removed with a JR and a Terumo TR band was successfully deployed utilizing patent hemostasis technique and a total of 16 cc of air was placed. COMPLICATIONS: None. ESTIMATED BLOOD LOSS: Minimal. FINDINGS: 1. Left main is angiographically normal. It gives rise to an LAD and circumflex branch. 2. LAD gives rise to a large first diagonal branch, which is angiographically normal. The remainder of the LAD is angiographically normal. 3. Left circumflex artery terminates into a mid marginal branch and is angiographically normal. 4. RCA is dominant and gives rise to right PDA and to right PLV branches. This vessel and its branches are angiographically normal. 5. Left ventricular ejection fraction is 65% with end-diastolic pressure of 20 mmHg. There is no significant LV to aortic pullback gradient. PLAN/RECOMMENDATIONS: 1. The patient essentially has patent coronary arteries. 2. There are no segmental wall motion abnormalities and end-diastolic pressure is 20 mmHg. These findings are out of proportion to her level of hypoxia and clinical presentation. 3. The patient was premedicated with Benadryl and IV steroids with protection against any contrast reaction. 4. We will defer to primary care for further care and management and evaluation. MD MARISSA Hargrove/LEIGH ANN /[id number]
--- NOTE | 2018-07-24 20:39 | NUR ---
Consult to PULMONARY called and spoke to Dr. Moreno, will see patient in the morning.
[2018-07-24] MEDS: CRESTOR 10MG PO SCH (21:00)
[2018-07-25] VITALS (8 sets, daily range): BP systolic 112–143; BP diastolic 56–80
[2018-07-25 05:43] LABS: BASOPHILS % 0.1 % (0.0-1.0); HEMATOCRIT 42.3 % (34.2-44.1); HEMOGLOBIN 13.9 g/dL (12.0-16.0); LYMPHOCYTES # (AUTO) 1.6 (1.0-3.2); MEAN CORPUSCULAR HEMOGLOBIN 29.8 pg (28-32); MEAN CORPUSCULAR HGB CONC 32.9 g/dL (31-35); MEAN CORPUSCULAR VOLUME 90.8 fL (81-99); MONOCYTES # (AUTO) 1.7 (0.2-0.8); MONOCYTES % 7.4 % (4.4-11.3); NEUTROPHILS # (AUTO) 19.2 (2.1-6.9); NEUTROPHILS % 84.7 % (38.7-80.0); PLATELET COUNT 193 x10e3/uL (140-360); RED BLOOD COUNT 4.66 x10e6/uL (3.6-5.1); RED CELL DISTRIBUTION WIDTH 13.1 % (11.7-14.4)
[2018-07-25 06:05] LABS: ALBUMIN 3.1 g/dL (3.5-5.0); ALBUMIN/GLOBULIN RATIO 0.7 (0.8-2.0); ANION GAP 12.8 mmol/L (8-16); CALCIUM 9.2 mg/dL (8.4-10.2); CREATININE, SERUM 1.09 mg/dL (0.57-1.11); POTASSIUM 4.8 mmol/L (3.5-5.1)
--- NOTE | 2018-07-25 07:25 | NUR ---
Patient endorsed to next shift for continuity of care.
[2018-07-25] MEDS ORDERED: NAPROXEN 250 MG TAB PO PRN (09:00)
[2018-07-25] MEDS ORDERED: ASPIRIN 81 MG ENTERIC COATED PO SCH (09:00)
[2018-07-25] MEDS ORDERED: ALPRAZOLAM 0.25 MG TAB PO PRN (09:00)
[2018-07-25] MEDS: METOPROLOL TARTRATE 25 MG TAB PO SCH ×2 (09:00→16:49)
[2018-07-25] MEDS: IRBESARTAN 150 MG TAB PO SCH (09:00)
[2018-07-25] MEDS: PANTOPRAZOLE 40 MG 10ML VIAL IV SCH ×2 (10:00→16:48)
[2018-07-25] MEDS: DICYCLOMINE HCL 20 MG TAB PO SCH ×2 (10:30→16:49)
[2018-07-25] MEDS: CEFTRIAXONE SOD 1 GM/NS 50 ML 50 ML IV SCH (10:36)
--- NOTE | 2018-07-25 11:00 | NUR ---
Patient off unit to Endo. Spouse at the bedside.
--- NOTE | 2018-07-25 12:28 | NUR ---
Patient returned from Endo, fully awake and alertx3. She ambulated to BR with standby assistance only and back to bed. Vital signs are stable. Patient updated with POC.
--- NOTE | 2018-07-25 13:48 | NUR ---
EDUCATED ABOUT IMM, SIGNED, FILED IN CHART, WITH COPY LEFT WITH FAMILY AT BEDSIDE.
--- NOTE | 2018-07-25 14:14 | Consultation ---
DATE OF CONSULTATION: 07/25/2018 HISTORY OF PRESENT ILLNESS: This is a 73-year-old, who presented to the hospital because of some chest pain along with some nausea, vomiting, and coffee-grounds emesis. The patient apparently had cardiac cath last night, which was okay. GI consult is obtained for further evaluation. According to her, she does have a history of hiatal hernia and also supposedly history of gastroparesis. Her workup so far revealed that her white count was elevated to 22 and then the CBC otherwise was okay and her CMP was alright. PAST MEDICAL HISTORY: Medical problems are significant for history of diabetes, history of hypertension, previous history of PE and DVT. Also, again history of gastroparesis as mentioned. MEDICATIONS: On admission including aspirin, dicyclomine, Cymbalta, hydrochlorothiazide, irbesartan, methocarbamol, metoprolol, pantoprazole, and Crestor. SOCIAL HISTORY: There is no alcohol use. FAMILY HISTORY: Noncontributory. REVIEW OF SYSTEMS: Denies any chest pain or shortness of breath at this point. Denies any dysphagia or odynophagia. Denies any dysuria or hematuria or any kind of syncopal episode. PHYSICAL EXAMINATION: GENERAL: She is awake and alert, appears to be stable, in no acute distress at this point. VITAL SIGNS: Afebrile currently. HEENT: Head is normocephalic, atraumatic. Sclerae anicteric. NECK: Supple. HEART: Regular. ABDOMEN: Soft. There is mild tenderness in the epigastric area. There is no rebound or mass. EXTREMITIES: Demonstrate no clubbing. IMAGING: CAT scan of the abdomen shows hepatic steatosis, otherwise is unremarkable and CT angiogram of the chest was unremarkable. IMPRESSION: 1. Noncardiac chest pain. 2. Nausea and vomiting with coffee-grounds emesis with gastrointestinal bleed. RECOMMENDATIONS: Continue current care at this point. We will proceed with EGD for further evaluation today and follow clinically. MD CIELO Mohan/LEIGH ANN /[id number] cc: MD Daniel Jacobs MD Thomas J Murphy
[2018-07-25] MEDS: DULOXETINE HCL 30 MG DELAYED RELEASE PO SCH (16:48)
[2018-07-25] MEDS: METHOCARBAMOL 500 MG TAB PO SCH (16:48)
[2018-07-25] MEDS: MONTELUKAST SODIUM 10 MG TAB PO SCH (16:48)
[2018-07-25] MEDS: SUCRALFATE 1 GM/10 ML SUSP PO SCH ×2 (16:48→21:11)
--- NOTE | 2018-07-25 17:30 | NUR ---
Patient tolerated soft diet without nausea or vomitting but did c/o pain while swallowing.
[2018-07-25] MEDS ORDERED: PROPOFOL IV EMULSION 10 MG/ML 20 ML VIAL ONE (17:57)
[2018-07-25] MEDS: ALBUTEROL/IPRATROPIUM 3 ML NEB NEB SCH (19:00)
[2018-07-25] MEDS ORDERED: METHYLPREDNISOLONE SOD SUCC 40 MG/ML VIAL 1ML IV SCH (21:00)
[2018-07-25] MEDS: CRESTOR 10MG PO SCH (21:10)
[2018-07-25] MEDS ORDERED: CRESTOR 10MG PO ONE (21:11)
[2018-07-25] MEDS: KETOROLAC TROMETHAMINE 30 MG/ML VIAL IV PRN (21:12)
--- NOTE | 2018-07-25 21:30 | NUR ---
Report given to PATRICIA Barnes and patient is being transfer to room 295.
--- NOTE | 2018-07-25 21:39 | NUR ---
Received report from nurse. Patient arrived to floor via stretcher from IMCU 198 into room 295. Patient c/o RODGERS but was medicated by [facility] nurse. will monitor.
[2018-07-25] MEDS: HYDROMORPHONE 2MG/ML 2 MG/ML ML IV PRN (21:47)
[2018-07-26] VITALS (7 sets, daily range): BP systolic 115–150; BP diastolic 53–78
--- NOTE | 2018-07-26 | NUR ---
Patient up out of bed. Ambulating with no difficulty noted. Denies pain at this time.
--- NOTE | 2018-07-26 00:11 | Consultation ---
DATE OF CONSULTATION: Pulmonary consultation. REASON FOR THE CONSULT: Shortness of breath. HISTORY OF PRESENT ILLNESS: Ms. Oliver is a 73-year-old female. She presented to the emergency room with complains of shortness of breath. She has history of hypertension and hyperlipidemia. In 2008, she had PE post right knee surgery. She reports that shortness of breath is going on for six months. However, last night had chest pain, so she came to the emergency room. She had T-wave inversion and Cardiology was consulted. The patient underwent left heart catheterization, which did not show any ischemic heart disease. She continues to have chest pain and also complaining of shortness of breath. She had her last echocardiogram done in 2006, which I cannot see in the computer and since then, there is no echocardiogram that I can see. It has been ordered. REVIEW OF SYSTEMS: GENERAL: Denies any fever or chills. HEAD: Denies any head trauma. ENT: Denies any earaches. CARDIOVASCULAR SYSTEM: Denies any chest pain. Now, she was having chest pain in the morning. The rest of the review of systems are negative except as in HPI. PAST MEDICAL HISTORY: Hypertension, cholecystectomy, and tonsillectomy. PAST SURGICAL HISTORY: Right knee surgery in 2008, thyroidectomy, cholecystectomy, hysterectomy, and tonsillectomy. FAMILY AND SOCIAL HISTORY: She is . Retired from [employer]. She does not smoke. Does not drink. Never smoked. PHYSICAL EXAMINATION: VITAL SIGNS: Temperature 98.4, pulse of 70, blood pressure 126/69, respiratory rate of 18, and O2 saturation 96% on 4 L. HEENT: Head is atraumatic, normocephalic. NECK: Supple. CHEST: Clear to auscultation bilaterally. No wheezing. HEART: S1 and S2 audible. ABDOMEN: Soft, nontender. EXTREMITIES: Trace pedal edema. NEUROLOGIC: Awake and alert. DIAGNOSTIC DATA: CTA of the chest shows small pericardial effusion, hepatic steatosis, sigmoid diverticulosis, but no significant finding in the chest. LABORATORY DATA: Showed white count of 22,000, hemoglobin 13.9, and platelets 193. Chemistry showed BNP of 31.5 and creatinine of 1.09. ASSESSMENT: Ms. Oliver is a 73-year-old female with shortness of breath with chest pain and shortness of breath going on for six months, history of pulmonary embolism in remote past. Echo is pending. Lifelong nonsmoker. Chest exam showed some reduced air entry bilaterally. The dyspnea can possibly due to underlying reactive airways versus asthma or there is a possibility that she has developed pulmonary hypertension as she has a history of pulmonary embolism in the past. PLAN: 1. We will follow the echo results and discuss with Cardiology about the possibility of pulmonary hypertension. 2. In the meantime, I will start the patient on nebulizer treatment. 3. GI workup is in progress for chest pain as well. I will also start low-dose steroids as she has reduced air entry and as possibility that she may have underlying reactive airways or asthma. She is being treated with antibiotic for possible bronchitis as well. MD LETICIA Faith/LEIGH ANN /[id number]
[2018-07-26] MEDS: ALBUTEROL/IPRATROPIUM 3 ML NEB NEB SCH ×4 (01:05→20:40)
--- NOTE | 2018-07-26 04:50 | NUR ---
Patient resting quitly at this time.
[2018-07-26 05:56] LABS: BASOPHILS % 0.1 % (0.0-1.0); HEMATOCRIT 38.4 % (34.2-44.1); HEMOGLOBIN 12.3 g/dL (12.0-16.0); LYMPHOCYTES # (AUTO) 1.2 (1.0-3.2); LYMPHOCYTES % 7.8 % (18.0-39.1); MEAN CORPUSCULAR HEMOGLOBIN 29.3 pg (28-32); MEAN CORPUSCULAR VOLUME 91.4 fL (81-99); MONOCYTES # (AUTO) 0.6 (0.2-0.8); NEUTROPHILS # (AUTO) 13.3 (2.1-6.9); NEUTROPHILS % 87.4 % (38.7-80.0); PLATELET COUNT 170 x10e3/uL (140-360)
[2018-07-26] MEDS: SUCRALFATE 1 GM/10 ML SUSP PO SCH ×4 (07:28→21:00)
[2018-07-26] MEDS: KETOROLAC TROMETHAMINE 30 MG/ML VIAL IV PRN (07:30)
[2018-07-26] MEDS ORDERED: BENZONATATE 100 MG CAP PO PRN (08:00)
[2018-07-26 08:39] LABS: ANION GAP 10.5 mmol/L (8-16); BLOOD UREA NITROGEN 22 mg/dL (7-26); BUN/CREATININE RATIO 28 (6-25); CALCIUM 8.7 mg/dL (8.4-10.2); CARBON DIOXIDE 27 mmol/L (22-29); CHLORIDE 103 mmol/L (98-107); EST GLOMERULAR FILTRATION RATE > 60 ML/MIN (60-); GLUCOSE 131 mg/dL (74-118); POTASSIUM 4.5 mmol/L (3.5-5.1); SODIUM 136 mmol/L (136-145)
[2018-07-26] MEDS: PANTOPRAZOLE 40 MG 10ML VIAL IV SCH ×2 (09:13→16:43)
[2018-07-26] MEDS: LORATADINE/PSEUDOEPHEDRINE 24 HR SR TAB PO SCH ×2 (09:13→09:21)
[2018-07-26] MEDS: METHYLPREDNISOLONE SOD SUCC 40 MG/ML VIAL 1ML IV SCH (09:14)
[2018-07-26] MEDS: IRBESARTAN 150 MG TAB PO SCH (09:15)
[2018-07-26] MEDS: DICYCLOMINE HCL 20 MG TAB PO SCH ×2 (09:15→16:43)
[2018-07-26] MEDS: MONTELUKAST SODIUM 10 MG TAB PO SCH (09:16)
[2018-07-26] MEDS: DULOXETINE HCL 30 MG DELAYED RELEASE PO SCH (09:16)
[2018-07-26] MEDS: METOPROLOL TARTRATE 25 MG TAB PO SCH ×2 (09:16→16:58)
[2018-07-26] MEDS: METHOCARBAMOL 500 MG TAB PO SCH (09:16)
[2018-07-26] MEDS: BENZONATATE 100 MG CAP PO SCH ×3 (09:17→21:00)
[2018-07-26] MEDS ORDERED: SODIUM CHLORIDE 0.9% 250ML 250 ML ONE (09:29)
[2018-07-26] MEDS: CEFTRIAXONE SOD 1 GM/NS 50 ML 50 ML IV SCH (09:35)
[2018-07-26] MEDS: FLUTICASONE PROPIONATE NASAL SPRAY NS SCH ×2 (13:07→16:43)
[2018-07-26] MEDS ORDERED: ACETAMINOPHEN 325 MG TAB PO PRN (15:45)
--- NOTE | 2018-07-26 19:50 | NUR ---
Received change of shift report from AM nurse. Rounds completed.
[2018-07-26] MEDS: CRESTOR 10MG PO SCH (21:00)
[2018-07-27] VITALS: BP 148/72
[2018-07-27] MEDS: ALBUTEROL/IPRATROPIUM 3 ML NEB NEB SCH ×3 (01:00→13:00)
[2018-07-27 04:00] VITALS: BP 139/72
[2018-07-27 06:27] LABS: BASOPHILS % 0.2 % (0.0-1.0); EOSINOPHILS # (AUTO) 0.1 (0.0-0.4); EOSINOPHILS % 0.6 % (0.0-6.0); HEMATOCRIT 36.9 % (34.2-44.1); HEMOGLOBIN 12.1 g/dL (12.0-16.0); LYMPHOCYTES # (AUTO) 2.5 (1.0-3.2); LYMPHOCYTES % 19.7 % (18.0-39.1); MEAN CORPUSCULAR HEMOGLOBIN 29.5 pg (28-32); MEAN CORPUSCULAR HGB CONC 32.8 g/dL (31-35); MONOCYTES # (AUTO) 0.8 (0.2-0.8); MONOCYTES % 6.7 % (4.4-11.3); NEUTROPHILS # (AUTO) 9.1 (2.1-6.9); NEUTROPHILS % 72.5 % (38.7-80.0); PLATELET COUNT 177 x10e3/uL (140-360)
--- NOTE | 2018-07-27 06:52 | NUR ---
Patient resting quitly with no c/o at this time. Continue monitor.
[2018-07-27 07:03] LABS: ANION GAP 8.2 mmol/L (8-16); BLOOD UREA NITROGEN 17 mg/dL (7-26); BUN/CREATININE RATIO 23 (6-25); CALCIUM 8.5 mg/dL (8.4-10.2); CARBON DIOXIDE 26 mmol/L (22-29); CHLORIDE 110 mmol/L (98-107); CREATININE, SERUM 0.74 mg/dL (0.57-1.11); EST GLOMERULAR FILTRATION RATE > 60 ML/MIN (60-); GLUCOSE 114 mg/dL (74-118); POTASSIUM 4.2 mmol/L (3.5-5.1); SODIUM 140 mmol/L (136-145)
--- NOTE | 2018-07-27 07:28 | NUR ---
PATIENT IN BED WITH HEAD OF BED ELEVATED RECEIVING NEB TREATMENT. DENIED PAIN. BED IN LOWER POSITION, CALL LIGHT AT REACH.
[2018-07-27 07:35] VITALS: BP 128/62
[2018-07-27] MEDS: SUCRALFATE 1 GM/10 ML SUSP PO SCH ×2 (08:03→11:30)
[2018-07-27 08:31] VITALS: BP 128/62
[2018-07-27] MEDS: FLUTICASONE PROPIONATE NASAL SPRAY NS SCH (09:00)
[2018-07-27] MEDS: PANTOPRAZOLE 40 MG 10ML VIAL IV SCH (09:30)
[2018-07-27] MEDS: METHYLPREDNISOLONE SOD SUCC 40 MG/ML VIAL 1ML IV SCH (09:30)
[2018-07-27] MEDS: IRBESARTAN 150 MG TAB PO SCH (09:30)
[2018-07-27] MEDS: DULOXETINE HCL 30 MG DELAYED RELEASE PO SCH (09:31)
[2018-07-27] MEDS: BENZONATATE 100 MG CAP PO SCH (09:31)
[2018-07-27] MEDS: MONTELUKAST SODIUM 10 MG TAB PO SCH (09:31)
[2018-07-27] MEDS: METOPROLOL TARTRATE 25 MG TAB PO SCH (09:31)
[2018-07-27] MEDS: DICYCLOMINE HCL 20 MG TAB PO SCH (09:31)
[2018-07-27] MEDS: METHOCARBAMOL 500 MG TAB PO SCH (09:31)
[2018-07-27] MEDS: LORATADINE/PSEUDOEPHEDRINE 24 HR SR TAB PO SCH (09:31)
[2018-07-27] MEDS: CEFTRIAXONE SOD 1 GM/NS 50 ML 50 ML IV SCH (10:00)
--- NOTE | 2018-07-27 10:53 | NUR ---
EDUCATED ABOUT IMM, SIGNED, FILED IN CHART, WITH COPY LEFT WITH FAMILY AT BEDSIDE.
[2018-07-27] MEDS ORDERED: GUAIFENESIN/DEXTROMETHORPHAN LIQD 5 ML UDC NG PRN (11:45)
[2018-07-27 12:22] VITALS: BP 146/73
[2018-07-27] MEDS ORDERED: OMEPRAZOLE40 MG PO (13:35)
[2018-07-27] MEDS ORDERED: CARAFATE1 GM/10 ML PO (13:36)
[2018-07-27] MEDS ORDERED: XANAX0.25 MG PO (13:38)
--- NOTE | 2018-07-27 14:09 | NUR ---
PATIENT DISCHARGED HOME. DISCHARGE INSTRUCTIONS, PRESCRIPTIONS, AND FOLLOW UP GIVEN TO PATIENT, SHE VERBALIZED UNDERSTANDING. IV TO LEFT AND RIGHT AC REMOVED WITH TIP INTACT. ALL PERSONAL ITEMS TAKEN WITH PATIENT. LEFT UNIT PER WHEEL CHAIR TO FRONT LOBBY IN STABLE CONDITION.
== END 2018-07-27 14:05 | disposition home or self-care (01) | DRG 286 ==
LOC: ER 07:48 → CATH LAB 12:32 → CATH LAB V 12:33 → IMCU 20:24 → MED/SURG3 07-25 21:39
PROVIDERS: ADMIT Internal Medicine; ATTEND Internal Medicine
PROC: 4A023N7 Measurement of Cardiac Sampling and Pressure, Left Heart, Percutaneous Approach (ICD-10-PCS; principal; 2018-07-24)
PROC: B2111ZZ Fluoroscopy of Multiple Coronary Arteries using Low Osmolar Contrast (ICD-10-PCS; 2018-07-24)
PROC: B2151ZZ Fluoroscopy of Left Heart using Low Osmolar Contrast (ICD-10-PCS; 2018-07-24)
DX: R07.89 Other chest pain (principal); K22.6 Gastro-esophageal laceration-hemorrhage syndrome; Z68.42 Body mass index [BMI] 45.0-49.9, adult; K92.2 Gastrointestinal hemorrhage, unspecified; I27.20 Pulmonary hypertension, unspecified; K31.84 Gastroparesis; I10 Essential (primary) hypertension; F41.9 Anxiety disorder, unspecified; K29.70 Gastritis, unspecified, without bleeding; E78.5 Hyperlipidemia, unspecified; J45.909 Unspecified asthma, uncomplicated; K44.9 Diaphragmatic hernia without obstruction or gangrene; Z86.711 Personal history of pulmonary embolism; Z79.01 Long term (current) use of anticoagulants; E66.9 Obesity, unspecified; E11.43 Type 2 diabetes mellitus with diabetic autonomic (poly)neuropathy; Z79.4 Long term (current) use of insulin
CPT/HCPCS: 36415; 43239; 71045; 71275; 74174; 80048; 80053; 80061; 82550; 82553; 83036; 83880; 84443; 84484; 85025; 85379; 85610; 85730; 88305; 88312; 88342; 93005; 93306; 93458; 94640; 99285; C1766; C1769; C1887; J0696; J1200; J1885; J2001; J2250; J2270; J2405; J2920; J2930; J7030; J7050; Q9967

== ENCOUNTER 2019-02-28 09:06 | Observation (INO) | payer OTHER ==
[2019-02-27 15:27] LABS: BASOPHILS % 0.3 % (0.0-1.0); EOSINOPHILS # (AUTO) 0.2 (0.0-0.4); EOSINOPHILS % 2.7 % (0.0-6.0); HEMATOCRIT 40.1 % (34.2-44.1); HEMOGLOBIN 13.3 g/dL (12.0-16.0); LYMPHOCYTES # (AUTO) 2.3 (1.0-3.2); LYMPHOCYTES % 25.9 % (18.0-39.1); MEAN CORPUSCULAR HGB CONC 33.2 g/dL (31-35); MEAN CORPUSCULAR VOLUME 90.5 fL (81-99); MONOCYTES # (AUTO) 0.5 (0.2-0.8); MONOCYTES % 5.8 % (4.4-11.3); NEUTROPHILS # (AUTO) 5.9 (2.1-6.9); PLATELET COUNT 192 x10e3/uL (140-360); RED BLOOD COUNT 4.43 x10e6/uL (3.6-5.1); RED CELL DISTRIBUTION WIDTH 12.9 % (11.7-14.4)
[2019-02-27 15:38] LABS: INR 0.96; PARTIAL THROMBOPLASTIN TIME 27.7 seconds (23.8-35.5); PROTHROMBIN TIME 13.3 seconds (11.9-14.5)
[2019-02-27 15:44] LABS: ANION GAP 14.2 mmol/L (8-16); CALCIUM 9.7 mg/dL (8.4-10.2); CREATININE, SERUM 1.02 mg/dL (0.57-1.11); POTASSIUM 4.2 mmol/L (3.5-5.1)
--- NOTE | 2019-02-27 16:02 | Diagnostic Imaging Report ---
Chest, 2 views, 02/27/2019. History: Preop, cervical fusion. Comparison: 07/24/2018. Findings: The cardiomediastinal silhouette and pulmonary vasculature are within normal limits. The lungs are clear without evidence of consolidation or pleural effusion. Degenerative changes are present throughout the thoracic spine. Surgical clips are present in the neck bilaterally. Surgical screws are also present in the right humeral head. There are no acute osseous or soft tissue abnormalities. Impression: No acute cardiopulmonary abnormality. Signed by: Matthias Swift on 02/27/2019 3:58 PM
[~2019-02-28] VITALS: Ht 160 cm; Wt 115.9 kg
[~2019-02-28 09:06] MED LIST: ACETAMINOPHEN 1000 MG/100 ML 100 ML IV ONE; ASPIR 8181 MG PO; CARAFATE1 GM/10 ML PO; CRESTOR5 MG PO; CYMBALTA30 MG PO; DICYCLOMINE HCL20 MG PO; HYDROCHLOROTHIA25 MG PO; IRBESARTAN150 MG PO; LIDOCAINE HCL (LTA) 4 ML SOLN ONE; METHOCARBAMOL500 MG PO; METOPROLOL SUCC25 MG PO; MONTELUKAST SOD10 MG PO; OMEPRAZOLE40 MG PO; PANTOPRAZOLE SO40 MG PO; PROBIOTICS PO; XANAX0.25 MG PO; potassium PO
[2019-02-28] MEDS ORDERED: BUPIVACAINE 0.5%/EPI 30 ML SDV INJ ONE (10:57)
[2019-02-28] MEDS ORDERED: BACITRACIN 50,000 UNIT VIAL ONE (10:57)
[2019-02-28] MEDS ORDERED: THROMBIN FOR SOLN 5,000 UNIT VIAL ONE (10:57)
[2019-02-28] MEDS ORDERED: CEFAZOLIN SOD 1 GM/NS 50ML 100 ML IV ONE (11:21)
[2019-02-28] MEDS: LACTATED RINGER'S 1,000 ML IV SCH ×2 (13:28→21:06)
[2019-02-28] MEDS ORDERED: MORPHINE SULFATE 5 MG/ML VIAL IM PRN (13:30)
[2019-02-28] MEDS ORDERED: MAGNESIUM/ALUMINUM/SIMETHICONE 30 ML UDC PO PRN (13:30)
[2019-02-28] MEDS ORDERED: HYDROMORPHONE 2MG/ML 2 MG/ML ML IV PRN (13:30)
[2019-02-28] MEDS ORDERED: ONDANSETRON HCL INJ 2MG/ML 2ML 2 MG/ML VIAL IV PRN (13:30)
[2019-02-28] MEDS ORDERED: PROMETHAZINE HCL (IM) 25 MG/ML VIAL IM PRN (13:30)
[2019-02-28] MEDS ORDERED: ACETAMINOPHEN 325 MG TAB PO PRN (13:30)
[2019-02-28] MEDS ORDERED: ZOLPIDEM TARTRATE 5 MG TAB PO PRN (13:30)
[2019-02-28] MEDS ORDERED: CEPACOL SORE THROAT LOZENGES PO PRN (13:30)
[2019-02-28] MEDS: CEFAZOLIN SOD 1 GM/NS 50ML 50 ML IV SCH ×2 (14:00→21:07)
[2019-02-28] MEDS ORDERED: FENTANYL CITRATE/PF 100MCG/2 ML INJ ONE ×2 (14:08→15:37)
[2019-02-28] MEDS ORDERED: MIDAZOLAM HCL 2 MG/2 ML VIAL ONE (14:08)
[2019-02-28] MEDS ORDERED: ROCURONIUM BROMIDE 10 MG/ML 5ML VIAL ONE (14:12)
[2019-02-28] MEDS ORDERED: LIDOCAINE HCL 2% LOCAL INJ 5 ML SDV VIAL INJ ONE (14:12)
[2019-02-28] MEDS ORDERED: ACETAMINOPHEN 1000 MG/100 ML IV ONE (14:12)
[2019-02-28] MEDS ORDERED: DEXAMETHASONE SOD PHOS INJ 4 MG/ML VIAL ONE (14:12)
[2019-02-28] MEDS ORDERED: NEOSTIGMINE 1 MG/ML 10ML VIAL ONE (14:12)
[2019-02-28] MEDS ORDERED: GLYCOPYRROLATE INJ 1MG/ 5 ML SYR ONE (14:12)
[2019-02-28] MEDS ORDERED: SEVOFLURANE INHAL SOLN 250 ML PEN BTL ONE (14:12)
[2019-02-28] MEDS ORDERED: ONDANSETRON HCL INJ 2MG/ML 2ML 2 MG/ML VIAL ONE (14:12)
[2019-02-28] MEDS ORDERED: PROPOFOL IV EMULSION 10 MG/ML 20 ML VIAL ONE (14:12)
[2019-02-28] MEDS ORDERED: LABETALOL HCL 20 ML ONE (15:24)
[2019-02-28 17:39] VITALS: BP 140/80
[2019-02-28 17:45] VITALS: BP 140/80
[2019-02-28] MEDS ORDERED: MORPHINE SULFATE INJ 4 MG/ML INJ 1ML IM PRN (17:45)
--- NOTE | 2019-02-28 17:48 | NUR ---
patient received from PACU via stretcher. see admit assess. hemovac to neck in place with bloody drainage. hard cervical collar in place. iv infusing well via left hand 20g. vitals stable with no distress. family at BS. PILY's and SCD's in place.
[2019-02-28] MEDS: PANTOPRAZOLE SOD 40 MG TABEC PO SCH (18:09)
[2019-02-28] MEDS: DULOXETINE HCL 30 MG DELAYED RELEASE PO SCH (18:09)
[2019-02-28] MEDS: DICYCLOMINE HCL 20 MG TAB PO SCH (18:09)
--- NOTE | 2019-02-28 18:24 | Operative Report ---
DATE OF PROCEDURE: 02/28/2019 SURGEON: Lazaro Mead MD PREOPERATIVE DIAGNOSES: C5-C6 and C6-C7 spondylosis and foraminal stenosis with radiculopathy, M50.120. POSTOPERATIVE DIAGNOSES: C5-C6 and C6-C7 spondylosis and foraminal stenosis with radiculopathy, M50.120. PROCEDURES: 1. C5-C6 anterior cervical diskectomy and microsurgical osteophyte resection and allograft fusion, 76355. 2. C6-C7 anterior cervical diskectomy and microsurgical osteophyte resection and allograft fusion, 03064. 3. Preparation of tricortical iliac crest allograft, 12916. 4. C5-C6 and C6-C7 anterior cervical plating with Synthes CSLP plate, [id number]. ANESTHESIA: General. INDICATIONS: The patient is a woman, who presents with C5-C6 and C6-C7 spondylosis with central and bilateral foraminal stenosis and was taken to the operating room for two-level anterior cervical decompression and fusion. PROCEDURE IN DETAIL: After induction of anesthesia, the patient was placed on the operating table in supine position. The right side of the neck was prepped and draped in sterile fashion. The fluoroscopic C-arm was positioned in cross-table lateral orientation. A transverse incision was created on the right side of neck superimposed on the C6 vertebral body as determined by fluoroscopy. The platysma was divided in line with the incision. A subplatysmal dissection was carried out and avascular plane of dissection was developed medially to sternocleidomastoid muscle and was followed medial to the carotid sheath to the anterior border of the cervical spine. The deep cervical fascia was opened. The esophagus was retracted to the left. The attachments of longus colli muscles to the anterolateral aspects of vertebral bodies of C5, C6, and C7 were divided. The anterior longitudinal ligament was resected. [place] posts were inserted into C5 and C7, and the [place] distractor was used to distract both disk spaces simultaneously. The anterior annuli of disks were incised with a #11 blade. The contents of both disks were thoroughly evacuated with curettes and pituitary rongeurs. The posterior osteophytes were meticulously drilled with a 2 mm cutting bur until they were completely removed. The posterior annulus of the disk, herniated disk material, and the posterior longitudinal ligament were resected layer by layer until the dura was fully exposed and decompressed. The medial aspects of the uncinate processes were resected bilaterally to further expose any compressed origins of the corresponding nerve roots. After satisfactory decompression had been achieved, the endplates were prepared for fusion. Two pieces of tricortical iliac crest allograft were cut to size and shapes of the disk spaces and were inserted into disk spaces under distraction and fluoroscopic guidance. The distraction was released and distraction posts were removed. A Synthes CSLP variable type anterior cervical plate was selected and affixed to the vertebral bodies of C5, C6, and C7 with three pairs of 14 x 4.35 mm screws. All screw holes were drilled and tapped on the lateral fluoroscopic guidance. All screws were locked with the appropriate locking screws and excellent construct was obtained. The wound was copiously irrigated with bacitracin solution. Meticulous hemostasis was secured. Retraction was removed. A Hemovac drain was placed and brought out through a separate stab incision. The platysma was closed with 3-0 Vicryl sutures. The skin was closed with 4-0 Monocryl suture in subcuticular fashion. Steri-Strips and dressing were applied. The patient was awakened, extubated, and taken to Postanesthesia Care Unit in stable condition. No intraoperative complications were encountered. Estimated blood loss was 30 mL. Lazaro Mead MD PP/LEIGH ANN /[id number]
[2019-02-28 19:19] VITALS: BP 140/80
[2019-02-28] MEDS: CARISOPRODOL 350 MG TAB PO PRN (19:50)
[2019-02-28] MEDS: OXYCODONE/ACETAMINOPHEN 5-325 1 EACH TABLET PO PRN (19:50)
[2019-02-28 20:00] VITALS: BP 153/72
[2019-02-28] MEDS ORDERED: SIMVASTATIN 20 MG TAB PO SCH (21:00)
[2019-03-01] VITALS: BP 166/79
[2019-03-01] MEDS: OXYCODONE/ACETAMINOPHEN 5-325 1 EACH TABLET PO PRN ×2 (01:25→09:15)
[2019-03-01] MEDS: CARISOPRODOL 350 MG TAB PO PRN (01:26)
[2019-03-01 04:00] VITALS: BP 150/76
[2019-03-01] MEDS: CEFAZOLIN SOD 1 GM/NS 50ML 50 ML IV SCH (05:33)
--- NOTE | 2019-03-01 06:28 | NUR ---
75 mL bloody drainage from Hemovac at 0600. Patient arrived to unit close to shift change and Hemovac was not drained until the end of this shift at 0600.
[2019-03-01 07:23] VITALS: BP 148/77
[2019-03-01] MEDS ORDERED: HYDROCHLOROTHIAZIDE 25 MG TAB PO SCH (09:00)
[2019-03-01] MEDS ORDERED: IRBESARTAN 150 MG TAB PO SCH (09:00)
[2019-03-01] MEDS: DULOXETINE HCL 30 MG DELAYED RELEASE PO SCH (09:15)
[2019-03-01] MEDS: DICYCLOMINE HCL 20 MG TAB PO SCH (09:15)
[2019-03-01] MEDS: PANTOPRAZOLE SOD 40 MG TABEC PO SCH (09:15)
--- NOTE | 2019-03-01 09:15 | Diagnostic Imaging Report ---
EXAMINATION: C-SPINE 2 VIEWS AP LATERAL INDICATION: Postoperative COMPARISON: None FINDINGS: AP and lateral radiographs of the cervical spine were obtained. There are postoperative findings of anterior cervical discectomy and fusion at C5-7. Minimal anterolisthesis at C4-5. No definite unexpected fracture. Hardware appears intact however is obscured on the lateral view by the soft tissues of the shoulders. Surgical clips throughout the anterior neck. Right surgical drain in place. Mild thickening of prevertebral soft tissues likely postoperative. IMPRESSION: Postoperative findings of anterior cervical discectomy and fusion at C5-7 as above. Signed by: Rhonda Tavarez MD on 03/01/2019 9:12 AM
--- NOTE | 2019-03-01 09:34 | NUR ---
Dressing is CDI, removed at this time. Hemovac dc'd at this time, pt tolerated well, 60cc of blood in collection chamber. 4x4 gauze over hemovac opening.
[2019-03-04] MEDS ORDERED: SENNA LAX8.6 MG PO (17:43)
[2019-03-04] MEDS ORDERED: GABAPENTIN100 MG PO (17:43)
[2019-03-04] MEDS ORDERED: CELEBREX100 MG PO (17:44)
[2019-03-04] MEDS ORDERED: ZOFRAN4 MG PO (17:44)
== END 2019-03-01 09:52 | disposition home or self-care (01) ==
LOC: OR 09:06 → PACU V 13:29 → IMCU 17:30
PROVIDERS: ADMIT Neurological Surgery; ATTEND Neurological Surgery
DX: M50.023 Cervical disc disorder at C6-C7 level with myelopathy (principal); I10 Essential (primary) hypertension; E78.5 Hyperlipidemia, unspecified; I12.9 Hypertensive chronic kidney disease with stage 1 through stage 4 chronic kidney disease, or unspecified chronic kidney disease; N18.3 Chronic kidney disease, stage 3 (moderate); Z86.718 Personal history of other venous thrombosis and embolism; M50.123 Cervical disc disorder at C6-C7 level with radiculopathy
CPT/HCPCS: 20931; 22551; 22552; 22845; 36415; 71046; 72040; 77003; 80048; 85025; 85610; 85730; 86850; 86900; 88304; 89060; 93005; C1763; G0378 ×2; J0131; J0690; J1100; J2001; J2250; J2405; J2704; J2710; J3010; J3490; S0164 ×2

== ENCOUNTER 2021-12-04 18:38 | Emergency (ER) | payer MEDICARE, OTHER ==
[~2021-12-04] VITALS: Ht 160 cm; Wt 108.9 kg
[~2021-12-04 18:38] MED LIST changes: -ACETAMINOPHEN 1000 MG/100 ML 100 ML IV ONE; +CELEBREX100 MG PO; +GABAPENTIN100 MG PO; -LIDOCAINE HCL (LTA) 4 ML SOLN ONE; +SENNA LAX8.6 MG PO; +ZOFRAN4 MG PO
[2021-12-04 20:23] VITALS: BP 131/54
== END 2021-12-04 20:23 | disposition home or self-care (01) ==
LOC: ER 18:45
DX: R05.9 Cough, unspecified (principal); J06.9 Acute upper respiratory infection, unspecified; H10.9 Unspecified conjunctivitis; I10 Essential (primary) hypertension; E03.9 Hypothyroidism, unspecified; K21.9 Gastro-esophageal reflux disease without esophagitis; M54.9 Dorsalgia, unspecified; G89.29 Other chronic pain; Z86.711 Personal history of pulmonary embolism; Z20.822 Contact with and (suspected) exposure to COVID-19
CPT/HCPCS: 71046; 99283; U0002

== ENCOUNTER 2024-08-06 19:34 | Inpatient (IN) | payer MEDICARE ==
[~2024-08-06] VITALS: Ht 160 cm; Wt 104.3 kg
[2024-08-06 19:34] VITALS: TEMP 97.8
[2024-08-06] MEDS ORDERED: DIPHENHYDRAMINE HCL INJ 50 MG/ML VIAL ONE (19:37)
[2024-08-06] MEDS: METHYLPREDNISOLONE SOD SUCC 125 MG/2ML VIAL IV STA (19:40)
[2024-08-06] MEDS: DIPHENHYDRAMINE HCL INJ 50 MG/ML VIAL IV STA (19:40)
[2024-08-06] MEDS: SODIUM CHLORIDE 0.9% 1000ML 1,000 ML IV STA (19:40)
[2024-08-06 19:46] LABS: BASOPHILS % 0.2 % (0.0-1.0); EOSINOPHILS # (AUTO) 0.2 (0.0-0.4); EOSINOPHILS % 1.9 % (0.0-6.0); HEMATOCRIT 40.9 % (34.2-44.1); HEMOGLOBIN 13.9 g/dL (12.0-16.0); LYMPHOCYTES # (AUTO) 3.2 (1.0-3.2); LYMPHOCYTES % 34.9 % (18.0-39.1); MEAN CORPUSCULAR VOLUME 88.1 fL (81-99); MONOCYTES # (AUTO) 0.6 (0.2-0.8); MONOCYTES % 6.4 % (4.4-11.3); NEUTROPHILS # (AUTO) 5.2 (2.1-6.9); NEUTROPHILS % 56.5 % (38.7-80.0); PLATELET COUNT 182 x10e3/uL (140-360); RED BLOOD COUNT 4.64 x10e6/uL (3.6-5.1); WHITE BLOOD COUNT 9.26 x10e3/uL (4.8-10.8)
[2024-08-06 20:06] LABS: ALBUMIN 3.7 g/dL (3.5-5.0); ANION GAP 15.8 mmol/L (8-16); BILIRUBIN,TOTAL 0.4 mg/dL (0.2-1.2); CREATININE, SERUM 0.95 mg/dL (0.57-1.11); POTASSIUM 3.8 mmol/L (3.5-5.1); TOTAL PROTEIN 7.4 g/dL (6.5-8.1)
[2024-08-06 20:12] LABS: TROPONIN I 0.006 ng/mL (0-0.300)
[2024-08-06 20:20] LABS: BILIRUBIN,URINE NEGATIVE (NEGATIVE); CLARITY,URINE CLEAR (CLEAR); COLOR,URINE YELLOW (YELLOW); GLUCOSE, URINE NEGATIVE (NEGATIVE); KETONES,URINE NEGATIVE (NEGATIVE); LEUKOCYTE ESTERASE ,URINE MODERATE (NEGATIVE); NITRITE,URINE NEGATIVE (NEGATIVE); PH,URINE 6 (5 - 7); PROTEIN,URINE DIPSTICK NEGATIVE (NEGATIVE); URINE UROBILINOGEN 0.2 mg/dL (0.2 - 1)
[2024-08-06 20:30] LABS: BACTERIA,URINE MODERATE /HPF; EPITHELIAL CELLS,URINE MANY /LPF; RBC,URINE 0-5 /HPF (0-5)
[2024-08-06 20:32] LABS: INR 0.92; PROTHROMBIN TIME 12.9 seconds (11.9-14.5)
[2024-08-06 20:44] LABS: CORONAVIRUS COVID-19 AG NEGATIVE (NEGATIVE); INFLUENZA A AG NEGATIVE (NEGATIVE); INFLUENZA B AG NEGATIVE (NEGATIVE)
[2024-08-06] MEDS ORDERED: SODIUM CHLORIDE 0.9% 100 ML ONE (20:46)
[2024-08-06] MEDS ORDERED: IOPAMIDOL 370 MG/ML 100 ML INFUS..BTL INJ ONE (20:46)
[2024-08-06 21:00] VITALS: PULSE 76; RESP 15
[2024-08-06] MEDS: TRIMETHOPRIM/SULFAMETHOXAZOLE 160-800 MG TAB PO SCH (21:06)
[2024-08-06] MEDS ORDERED: ONDANSETRON HCL INJ 2MG/ML 2ML 2 MG/ML VIAL IV PRN (21:15)
[2024-08-06] MEDS ORDERED: Morphine 2mg Syringe 2 MG/ML SYR IV PRN (21:15)
[2024-08-06 21:51] VITALS: BP 121/81; PULSE 71; RESP 22; TEMP 98.3; O2SAT 97
[2024-08-06 22:00] VITALS: BP 114/46; PULSE 71; RESP 18; TEMP 98.3; O2SAT 99
[2024-08-06] MEDS ORDERED: LOSARTAN POTAS100 MG PO (22:35)
[2024-08-06] MEDS ORDERED: CHLORTHALIDONE25 MG PO (22:35)
[2024-08-06] MEDS ORDERED: METHOCARBAMOL750 MG PO (22:35)
[2024-08-06] MEDS ORDERED: NIFEDIPINE ER30 M1 PO (22:35)
[2024-08-06] MEDS: SODIUM CHLORIDE 0.9% 1000ML 1,000 ML IV SCH (23:35)
[2024-08-07] VITALS (7 sets, daily range): BP systolic 114–144; BP diastolic 46–58; PULSE 60–74; RESP 18–20; TEMP 97–98.3; O2SAT 93–99
[2024-08-07 05:30] LABS: HEMATOCRIT 39.3 % (34.2-44.1); HEMOGLOBIN 13.3 g/dL (12.0-16.0); LYMPHOCYTES # (AUTO) 1.1 (1.0-3.2); LYMPHOCYTES % 14.4 % (18.0-39.1); MEAN CORPUSCULAR HEMOGLOBIN 29.8 pg (28-32); MEAN CORPUSCULAR HGB CONC 33.8 g/dL (31-35); MEAN CORPUSCULAR VOLUME 88.1 fL (81-99); MONOCYTES % 0.5 % (4.4-11.3); NEUTROPHILS # (AUTO) 6.3 (2.1-6.9); NEUTROPHILS % 84.7 % (38.7-80.0); PLATELET COUNT 173 x10e3/uL (140-360); RED BLOOD COUNT 4.46 x10e6/uL (3.6-5.1); RED CELL DISTRIBUTION WIDTH 12.8 % (11.7-14.4); WHITE BLOOD COUNT 7.42 x10e3/uL (4.8-10.8)
[2024-08-07 06:01] LABS: ALBUMIN 3.3 g/dL (3.5-5.0); ALBUMIN/GLOBULIN RATIO 0.9 (0.8-2.0); ANION GAP 15.1 mmol/L (8-16); BILIRUBIN,TOTAL 0.4 mg/dL (0.2-1.2); CALCIUM 8.6 mg/dL (8.4-10.2); CREATININE, SERUM 0.85 mg/dL (0.57-1.11); POTASSIUM 4.1 mmol/L (3.5-5.1); TOTAL PROTEIN 6.8 g/dL (6.5-8.1)
[2024-08-07 06:33] LABS: TROPONIN I 0.009 ng/mL (0-0.300)
[2024-08-07] MEDS ORDERED: METHOCARBAMOL 750 MG TAB PO PRN (08:45)
[2024-08-07 09:17] LABS: FOLATE 7.2 ng/mL (7.0-15.4)
[2024-08-07] MEDS: PANTOPRAZOLE SOD 40 MG TABEC PO SCH (09:31)
[2024-08-07] MEDS: SENNOSIDES 8.6 MG TAB PO SCH (09:31)
[2024-08-07] MEDS: LACTOBACILLUS ACIDOPHILUS CAPSULE PO SCH (09:31)
[2024-08-07] MEDS: LOSARTAN POTASSIUM 100 MG TAB PO SCH (09:32)
[2024-08-07] MEDS: NIFEDIPINE CR 30 MG TAB PO SCH (09:32)
[2024-08-07] MEDS ORDERED: ECOTRIN81 MG PO (14:14)
[2024-08-07] MEDS ORDERED: ENOXAPARIN SOD INJ 40 MG/0.4 ML SYR SC SCH (17:00)
== END 2024-08-07 14:51 | disposition home or self-care (01) | DRG 690 ==
LOC: ER 19:38 → ERHOLD 21:22 → MED/SURG2 22:05
PROVIDERS: ADMIT Internal Medicine; ATTEND Internal Medicine
DX: N39.0 Urinary tract infection, site not specified (principal); G93.40 Encephalopathy, unspecified; I10 Essential (primary) hypertension; M54.9 Dorsalgia, unspecified; E89.0 Postprocedural hypothyroidism; M19.90 Unspecified osteoarthritis, unspecified site; D32.9 Benign neoplasm of meninges, unspecified; J45.909 Unspecified asthma, uncomplicated; Z11.52 Encounter for screening for COVID-19; Z86.711 Personal history of pulmonary embolism; Z86.73 Personal history of transient ischemic attack (TIA), and cerebral infarction without residual deficits; Z90.49 Acquired absence of other specified parts of digestive tract; Z90.710 Acquired absence of both cervix and uterus; Z98.1 Arthrodesis status; Z91.041 Radiographic dye allergy status; Z88.8 Allergy status to other drugs, medicaments and biological substances
CPT/HCPCS: 36415; 70450; 70496; 70498; 70551; 71045; 80053; 81001; 82550; 82607; 82746; 83690; 83880; 84443; 84484; 85025; 85610; 93005; 94799; 99284; J0696; J1200; J2470; J2919; J7030; J7050; Q9967